=== PATIENT | female | born 1995 | race Caucasian/White ===

== ENCOUNTER → 2018-07-01 | Outpatient (CLI) | payer BC | LOC: COL.RAD 12:53 | DX: R31.29 Other microscopic hematuria (principal); R10.814 Left lower quadrant abdominal tenderness; M54.9 Dorsalgia, unspecified ==

== ENCOUNTER 2018-12-12 14:49 | Outpatient (CLI) | payer OTHER ==
[2018-12-12 15:00] VITALS: BP 101/67; PULSE 99; TEMP 98.7
[2018-12-12] MEDS ORDERED: GLUCOPHAGE500 MG/TAB PO (15:09)
== END 2018-12-12 17:00 | disposition home or self-care (01) ==
LOC: EUO 14:49
DX: Z01.89 Encounter for other specified special examinations (principal)
CPT/HCPCS: J7030

== ENCOUNTER 2020-05-11 14:30 | Outpatient (RCR) | payer BC ==
[2020-04-20 14:43] VITALS: BP 125/54; PULSE 84; TEMP 97.8
[2020-04-27 15:28] VITALS: BP 106/73; PULSE 66; TEMP 98.3
[2020-05-04 15:09] VITALS: BP 108/71; PULSE 77; TEMP 98.1
[~2020-05-11] VITALS: Ht 162.6 cm; Wt 86.8 kg
[~2020-05-11 14:30] MED LIST: GLUCOPHAGE500 MG/TAB PO; VITAMIN D 50,1.25 MG PO
[2020-05-11 16:00] VITALS: BP 122/85; PULSE 86
== END 2020-05-11 16:32 | disposition home or self-care (01) ==
LOC: EUO 14:30
DX: Z79.899 Other long term (current) drug therapy (principal)
CPT/HCPCS: J2916

== ENCOUNTER → 2020-07-12 | Outpatient (CLI) | payer BC | LOC: ZLAB.KSTAT 18:06 | DX: Z20.828 Contact with and (suspected) exposure to other viral communicable diseases (principal) ==

== ENCOUNTER 2022-06-05 09:46 | Emergency (ER) | payer BC ==
[~2022-06-05] VITALS: Ht 162.6 cm; Wt 86.4 kg
[2022-06-05 10:19] LABS: COLLECTION METHOD CLEAN CATCH
[2022-06-05 10:39] LABS: BASO # 0.1 K/mm3 (0.0-0.2); BASO % 0.6 % (0.0-2.0); EOS % 0.5 % (0.0-4.0); GRAN # 5.2 K/mm3 (1.4-6.5); GRAN % 63.5 % (42.2-75.2); HEMATOCRIT 38.5 % (37.0-47.0); LYMPH # 2.3 K/mm3 (1.2-3.4); LYMPH % 27.9 % (20.0-51.0); MEAN CELL VOLUME 84 fl (80.0-100.0); MEAN CORPUSCULAR HEMOGLOBIN 28 pg (27-31); MEAN CORPUSCULAR HGB CONC 34 g/dl (33.0-37.0); MEAN PLATELET VOLUME 10.3 fl (7.4-10.4); MONO # 0.6 K/mm3 (0.1-0.6); MONO % 7.3 % (1.7-9.3); PLATELET COUNT 351 K/mm3 (130-400); RED BLOOD COUNT 4.58 M/mm3 (4.10-5.30); REDCELL DISTRIBUTION WIDTH-CV 13.4 % (11.5-14.5)
[2022-06-05 10:45] LABS: ALBUMIN 3.5 gm/dL (3.5-5.0); BILIRUBIN,TOTAL 0.4 mg/dL (0.2-1.2); C-REACTIVE PROTEIN 0.78 mg/dL (0.00-0.50); CALCIUM 9.1 mg/dL (8.4-10.2); CREATININE, serum 0.82 mg/dL (0.57-1.11); POTASSIUM 3.9 mmol/L (3.5-4.5); TOTAL PROTEIN 7.2 gm/dL (6.2-8.1)
[2022-06-05 11:01] LABS: MUCOUS Present (NOT PRESENT); SQUAMOUS EPITHELIAL None Seen /hpf (0-10); URINE BACTERIA None Seen /hpf (NONE SEEN); URINE RBC >50 /hpf (0-2)
[2022-06-05 11:02] LABS: URINE APPEARANCE Cloudy (CLEAR/HAZY); URINE BLOOD 3+ (NEGATIVE); URINE COLOR Red (YELLOW); URINE GLUCOSE Negative (NEGATIVE); URINE KETONE TRACE (NEGATIVE); URINE NITRATE Positive (NEGATIVE); URINE PROTEIN(semi-quant) 3+ (NEGATIVE)
[2022-06-05] MEDS ORDERED: CEFTIN500 MG PO (11:54)
[2022-06-05] MEDS ORDERED: ZOFRAN ODT4 MG PO (11:54)
[2022-06-05 12:19] VITALS: BP 117/72; PULSE 57; TEMP 97.9
== END 2022-06-05 12:24 | disposition home or self-care (01) ==
LOC: COL.ER 09:46
PROVIDERS: Physician Assistant
DX: N12 Tubulo-interstitial nephritis, not specified as acute or chronic (principal); Z28.310 Unvaccinated for COVID-19
CPT/HCPCS: J0696; J1885; J2405